=== PATIENT | male | born 1985 | race African-American/Black ===

== ENCOUNTER 2016-07-26 21:44 | Emergency (ER) | payer OTHER ==
[~2016-07-26] VITALS: Ht 180.3 cm; Wt 88.5 kg
[2016-07-26 21:46] VITALS: BP 134/93
[2016-07-26 22:05] LABS: URINE BILIRUBIN NEGATIVE (Negative); URINE BLOOD NEGATIVE (Negative); URINE COLOR YELLOW; URINE GLUCOSE-RANDOM* NEGATIVE (Negative); URINE KETONES NEGATIVE (Negative); URINE NITRITE NEGATIVE (Negative); URINE PROTEIN (DIPSTICK) NEGATIVE (Negative); URINE SPECIFIC GRAVITY >= 1.030 (1.003-1.035)
[2016-07-26] MEDS ORDERED: PHENERGAN 25 MG25 M1 PO ×2 (22:14→22:52)
[2016-07-26] MEDS ORDERED: BENZTROPINE MESY2 MG PO (22:15)
[2016-07-26] MEDS ORDERED: UNICOMPLEX M TA1 TA1 PO (22:15)
[2016-07-26] MEDS ORDERED: VITAMIN D1000 UNI1 PO (22:15)
[2016-07-26] MEDS ORDERED: ABILIFY MAINTE300 MG IM (22:15)
[2016-07-26] MEDS ORDERED: FLOVENT HFA 1110 MCG INH (22:16)
[2016-07-26] MEDS ORDERED: VENTOLIN HFA 1818 GM INH (22:16)
[2016-07-26] MEDS ORDERED: FLONASE 0.05%50 MCG NASAL (22:16)
[2016-07-26 22:17] LABS: ABSOLUTE NEUTROPHILS 2.7 thou/uL (1.4-8.2); BASOPHILS 0.3 % (0.0-2.0); EOSINOPHILS 2.1 % (0.0-3.0); HEMATOCRIT 44.3 % (42.0-52.0); HEMOGLOBIN 15.3 gm/dL (14.0-18.0); LYMPHOCYTES 38.2 % (24.0-44.0); MCHC 34.5 g/dL (28.0-37.0); MCV 92.9 fL (80.0-100.0); MONOCYTES 7.7 % (1.0-8.0); PLATELET COUNT 293 thou/uL (150-400); POLYS 51.7 % (36.0-66.0); RBC 4.77 mil/uL (4.50-6.00); RDW 13.6 % (10.5-14.5); WBC 5.3 thou/uL (4.0-11.0)
[2016-07-26 22:22] LABS: MANUAL DIFF NO
[2016-07-26 22:23] LABS: CALCIUM 8.9 mg/dL (8.5-10.1); CREATININE 1.2 mg/dL (0.7-1.3); POTASSIUM 3.8 mmol/L (3.5-5.1)
[2016-07-26 22:27] LABS: ALBUMIN 4.2 g/dL (3.4-5.0); TOTAL BILIRUBIN 0.4 mg/dL (<0.1-1.0); TOTAL PROTEIN 7.9 g/dL (6.4-8.2)
[2016-07-26] MEDS ORDERED: MUPIROCIN15 GM TP (22:52)
== END 2016-07-26 23:07 | disposition home or self-care (01) ==
LOC: ER 21:44
PROVIDERS: Physician Assistant
DX: R11.0 Nausea (principal); J45.909 Unspecified asthma, uncomplicated; F17.210 Nicotine dependence, cigarettes, uncomplicated